=== PATIENT | female | born 1995 | race Caucasian/White ===

== ENCOUNTER 2020-10-18 16:07 | Emergency (ER) | payer OTHER ==
[2020-10-18 16:57] LABS: HEMOGLOBIN 14.5 gm/dl (12.3-15.3); RED BLOOD COUNT 4.54 M/UL (4.00-5.10); WHITE BLOOD COUNT 7.8 K/UL (4.5-11.0)
[2020-10-18 17:23] LABS: BUN/CREATININE RATIO 10 (0-10)
[2020-10-18] MEDS ORDERED: PHENERGAN 12.12.5 M1 PO (20:54)
[2020-10-18] MEDS ORDERED: ZOFRAN ODT 4 MG4 MG SL (20:54)
== END 2020-10-18 21:14 | disposition home or self-care (01) ==
LOC: ER1 16:07
PROVIDERS: Physician Assistant
DX: K52.9 Noninfective gastroenteritis and colitis, unspecified (principal); F17.290 Nicotine dependence, other tobacco product, uncomplicated
CPT/HCPCS: 80053; 81001; 83690; 84703; 85025; 96374; 96375; 99284; J1885; J2405; Q9967

== ENCOUNTER 2020-11-19 01:08 | Emergency (ER) | payer OTHER ==
[~2020-11-19 01:08] MED LIST: PHENERGAN 12.12.5 M1 PO; ZOFRAN ODT 4 MG4 MG SL
[2020-11-19 02:14] LABS: HEMOGLOBIN 12.3 gm/dl (12.3-15.3); RED BLOOD COUNT 3.92 M/UL (4.00-5.10); WHITE BLOOD COUNT 7.2 K/UL (4.5-11.0)
[2020-11-19 02:35] LABS: BUN/CREATININE RATIO 6 (0-10)
[2020-11-19] MEDS ORDERED: ZOFRAN ODT 4 MG4 MG SL (04:43)
[2020-11-19] MEDS ORDERED: NAPROSYN500 MG PO (04:43)
== END 2020-11-19 05:00 | disposition home or self-care (01) ==
LOC: ER1 01:08
PROVIDERS: Emergency Medicine
DX: R10.11 Right upper quadrant pain (principal); R19.7 Diarrhea, unspecified; R11.2 Nausea with vomiting, unspecified; F41.9 Anxiety disorder, unspecified
CPT/HCPCS: 74019; 80053; 81001; 83690; 84703; 85025; 96374; 99284; J1885; J2270; J2405; Q9967

== ENCOUNTER → 2021-01-24 | Outpatient (CLI) | payer OTHER ==
[~2021-01-24] MED LIST changes: +NAPROSYN500 MG PO
== END ==
LOC: NM 01-22 09:00
DX: R10.11 Right upper quadrant pain (principal)
CPT/HCPCS: 78226; A9537